=== PATIENT | female | born 1990 | race African-American/Black ===

== ENCOUNTER 2018-01-24 23:04 | Emergency (ER) | payer OTHER ==
[~2018-01-24] VITALS: Ht 170.2 cm; Wt 54.4 kg
[~2018-01-24 23:04] MED LIST: ACETAMINOPHEN-1 EAC1 PO; BIRTH CONTROL; DESYREL150 MG PO; FLAGYL500 MG PO; IBUPROFEN 600600 M1 PO; KEFLEX500 M1 PO; METROGEL-VAGINA70 GM VG; NORCO 5-325 TA1 EACH PO; PHENERGAN 25 MG25 M1 PO; PROZAC10 MG PO
[2018-01-25 00:17] VITALS: BP 130/75
== END 2018-01-25 00:17 | disposition home or self-care (01) ==
LOC: M.ERS 23:04
DX: M25.462 Effusion, left knee (principal); F32.9 Major depressive disorder, single episode, unspecified

== ENCOUNTER 2018-01-27 22:03 | Emergency (ER) | payer OTHER ==
[~2018-01-27] VITALS: Ht 157.5 cm; Wt 61.2 kg
[2018-01-27 22:07] VITALS: BP 124/64
== END 2018-01-27 22:31 | disposition home or self-care (01) ==
LOC: M.ERS 22:03
DX: M25.562 Pain in left knee (principal); F32.9 Major depressive disorder, single episode, unspecified; W18.39XD Other fall on same level, subsequent encounter

== ENCOUNTER 2018-09-10 17:05 | Emergency (ER) | payer OTHER ==
[~2018-09-10] VITALS: Ht 157.5 cm; Wt 61.2 kg
[2018-09-10] MEDS ORDERED: NABUMETONE 750750 M1 PO (18:00)
[2018-09-10] MEDS ORDERED: CENTANY30 GM TOP (18:00)
[2018-09-10 19:27] VITALS: BP 118/78
== END 2018-09-10 19:20 | disposition home or self-care (01) ==
LOC: M.ERS 17:05
DX: S61.012A Laceration without foreign body of left thumb without damage to nail, initial encounter (principal); F32.9 Major depressive disorder, single episode, unspecified; W26.9XXA Contact with unspecified sharp object(s), initial encounter; Y93.89 Activity, other specified; Y92.89 Other specified places as the place of occurrence of the external cause; Y99.8 Other external cause status

== ENCOUNTER 2018-09-24 16:14 | Emergency (ER) | payer OTHER ==
[~2018-09-24] VITALS: Ht 157.5 cm; Wt 61.2 kg
[~2018-09-24 16:14] MED LIST changes: +CENTANY30 GM TOP; +NABUMETONE 750750 M1 PO
[2018-09-24 16:37] VITALS: BP 116/81
[2018-09-24] MEDS ORDERED: TRAZODONE HCL50 MG PO (16:39)
== END 2018-09-24 16:53 | disposition home or self-care (01) ==
LOC: M.ERS 16:14
DX: S61.012D Laceration without foreign body of left thumb without damage to nail, subsequent encounter (principal); F32.9 Major depressive disorder, single episode, unspecified; X58.XXXD Exposure to other specified factors, subsequent encounter